=== PATIENT | female | born 1990 | race Caucasian/White ===

== ENCOUNTER → 2019-07-24 | Outpatient (CLI) | payer BC, OTHER ==
[~2019-07-24] MED LIST: ACETAMINOPHEN325 M1 PO; COLACE 100 MG100 MG PO; IBUPROFEN 200200 M1 PO; MIRALAX17 GM PO; OXYCODONE HCL 55 MG PO; PROAIR HFA8.5 GM INH
== END ==
LOC: NUC 07-17 21:28
PROVIDERS: ATTEND Nurse Practitioner
DX: R10.11 Right upper quadrant pain (principal)

== ENCOUNTER → 2019-08-03 | Day surgery (SDC) | payer BC, OTHER ==
[~2019-08-03] VITALS: Ht 167.6 cm; Wt 135.6 kg
[2019-08-03 11:38] VITALS: BP 135/72
[2019-08-03 16:17] VITALS: BP 135/72
--- NOTE | 2019-08-07 18:06 | PATH ---
[facility] [address] [place] [address] PATHOLOGY RPT PROCEDURE Name: SARAH SANTOYO Room #: [place] [facility] M.R.#: [id number] Admission: 08/03/19 Date of : 86 Discharge: Report #: [id number] Path Case #: [id number] [facility] Accession Number: [id number] . 01 Material submitted: . gallbladder - GALLBLADDER . 01 Clinical history: . Symptomatic cholelithiasis . 02 Diagnosis: Gallbladder, cholecystectomy: - Mild chronic cholecystitis. - Cholelithiasis. - Cholesterolosis. (IUV/db; 08/07/2019) LBQ 08/07/2019 1541 Local . 02 Electronically signed: . Joann Peres MD, Pathologist NPI- [id number] . 01 Gross description: . The specimen is received in formalin, labeled "hesham Stroud". Received is an intact gallbladder measuring 5.5 x 3.0 x 1.1 cm in greatest dimensions displaying a pink-angela serosal surface. Opening the specimen reveals a velvety, bile-stained mucosa with mild, diffuse cholesterolosis, and with a gallbladder wall thickness of 0.1 cm. Calculi are not present, and no masses or lesions are noted grossly. Roving Hand sections, to include the proximal margin, are submitted in cassette A1. (CAA; 08/04/2019) [facility] 08/04/2019 1226 Local . 02 Pathologist provided ICD-10: K80.10, K82.4 . 02 CPT . 180228 Specimen Comment: A courtesy copy of this report has been sent to [phone], [phone] Specimen Comment: [phone] Specimen Comment: Report sent to / DR OCHOA Performed at: [address], [place] [id number] MD Heriberto Spangler MD Phone: [phone] [address] [address] PATHOLOGY RPT PROCEDURE Name: SARAH SANTOYO Room #: [facility] June#: [id number] Admission: 08/03/19 Date of : 86 Discharge: Report #: [id number] Path Case #: [id number] Performed at: [address] [id number] MD Joann Peres MD Phone: [phone]
== END | disposition home or self-care (01) ==
LOC: OR 11:01
PROVIDERS: ATTEND Surgery
DX: K80.20 Calculus of gallbladder without cholecystitis without obstruction (principal); R10.9 Unspecified abdominal pain; J45.909 Unspecified asthma, uncomplicated; K21.9 Gastro-esophageal reflux disease without esophagitis; Z98.890 Other specified postprocedural states; Z79.899 Other long term (current) drug therapy; Z11.59 Encounter for screening for other viral diseases
CPT/HCPCS: 50010; 50101; 58115; 62110; 62900; 70005

== ENCOUNTER → 2019-09-05 | Outpatient (CLI) | payer BC, OTHER | LOC: CAT 08:48 | PROVIDERS: ATTEND Family Medicine | DX: N28.1 Cyst of kidney, acquired (principal) ==

== ENCOUNTER 2019-10-01 18:57 | Emergency (ER) | payer BC, OTHER ==
[~2019-10-01] VITALS: Ht 167.6 cm; Wt 138.8 kg
[2019-10-01 19:19] LABS: URINE BILIRUBIN NEGATIVE (Negative); URINE BLOOD TRACE (Negative); URINE CLARITY CLEAR; URINE COLOR YELLOW; URINE GLUCOSE-RANDOM* NEGATIVE (Negative); URINE KETONES NEGATIVE (Negative); URINE LEUKOCYTES-REFLEX NEGATIVE (Negative); URINE NITRITE-REFLEX NEGATIVE (Negative); URINE PROTEIN (DIPSTICK) NEGATIVE (Negative); URINE SPECIFIC GRAVITY 1.025 (1.005-1.035); URINE UROBILINOGEN 0.2 E.U./dl (0.2-1.0)
[2019-10-01 20:35] VITALS: BP 163/97
== END 2019-10-01 20:36 | disposition home or self-care (01) ==
LOC: ER 18:57
PROVIDERS: Nurse Practitioner
DX: S40.811A Abrasion of right upper arm, initial encounter (principal); M25.571 Pain in right ankle and joints of right foot; K21.9 Gastro-esophageal reflux disease without esophagitis; J45.909 Unspecified asthma, uncomplicated; Z79.899 Other long term (current) drug therapy; Z88.2 Allergy status to sulfonamides; W18.39XA Other fall on same level, initial encounter; Y93.89 Activity, other specified; Y92.89 Other specified places as the place of occurrence of the external cause; Y99.8 Other external cause status

== ENCOUNTER → 2019-10-02 | Outpatient (CLI) | payer BC, OTHER | LOC: CAT 13:06 | PROVIDERS: ATTEND Nurse Practitioner | DX: M19.071 Primary osteoarthritis, right ankle and foot (principal); G89.11 Acute pain due to trauma ==

== ENCOUNTER → 2020-01-09 | Outpatient (CLI) | payer BC, OTHER | LOC: LAB 12:02 | PROVIDERS: ATTEND Nurse Practitioner | DX: U07.1 COVID-19 (principal) ==

== ENCOUNTER 2020-03-30 21:46 | Emergency (ER) | payer BC, OTHER ==
[~2020-03-30] VITALS: Ht 167.6 cm; Wt 136.1 kg
[2020-03-30] MEDS ORDERED: ONDANSETRON HCL4 M3 (21:55)
[2020-03-30 23:13] LABS: ABSOLUTE NEUTROPHILS 3.9 thou/uL (1.4-8.2); BASOPHILS 0.6 % (0.0-2.0); EOSINOPHILS 2.5 % (0.0-3.0); HEMATOCRIT 34.4 % (37.0-47.0); HEMOGLOBIN 11.6 gm/dL (12.0-15.0); LYMPHOCYTES 36.1 % (24.0-44.0); MCH 30.1 pg (26.0-34.0); MCHC 33.6 g/dL (28.0-37.0); MCV 89.5 fL (80.0-100.0); MONOCYTES 7.8 % (1.0-8.0); PLATELET COUNT 190 thou/uL (150-400); RBC 3.85 mil/uL (4.20-5.00); RDW 13.2 % (10.5-14.5); WBC 7.3 thou/uL (4.0-11.0)
[2020-03-30 23:15] LABS: ANION GAP 8 mmol/L (7-16); BUN 23 mg/dL (7-18); CALCIUM 8.2 mg/dL (8.5-10.1); CHLORIDE 104 mmol/L (98-107); CO2 27 mmol/L (21-32); GLUCOSE 102 mg/dL (74-106); POTASSIUM 4.2 mmol/L (3.5-5.1); SODIUM 139 mmol/L (136-145)
[2020-03-30 23:21] LABS: ALBUMIN 3.3 g/dL (3.4-5.0); DIRECT BILIRUBIN < 0.1 mg/dL (<0.1-0.2); SGOT 21 U/L (15-37); SGPT 30 U/L (14-59); TOTAL BILIRUBIN 0.3 mg/dL (0.2-1.0); TOTAL PROTEIN 6.7 g/dL (6.4-8.2)
[2020-03-31] MEDS ORDERED: ZOFRAN ODT4 MG PO (01:18)
[2020-03-31] MEDS ORDERED: MECLIZINE HCL25 MG PO (01:18)
[2020-03-31 01:28] VITALS: BP 121/55
== END 2020-03-31 01:28 | disposition home or self-care (01) ==
LOC: ER 21:46
PROVIDERS: Emergency Medicine
DX: H81.10 Benign paroxysmal vertigo, unspecified ear (principal); K21.9 Gastro-esophageal reflux disease without esophagitis; J45.909 Unspecified asthma, uncomplicated; Z79.899 Other long term (current) drug therapy; Z88.2 Allergy status to sulfonamides